=== PATIENT | female | born 1955 | race Asian ===

== ENCOUNTER 2017-03-21 18:19 | Emergency (ER) | payer OTHER ==
[~2017-03-21] VITALS: Wt 66.7 kg
[~2017-03-21 18:19] MED LIST: ASTHMA INHALER; ATOR10TA65 PO; AZIT250T94 PO; CLOT30CR24 TOP; HYDR-3010 PO
--- NOTE | 2017-03-21 22:27 | ERD ---
ER Documentation Chief Complaint Chief Complaint ABD PAIN, DIARRHEA, ONSET 2 WEEKS HPI The patient is a 61-year-old female, presenting to the ER because of intermittent epigastric abdominal pain, associated with diarrhea after she started intended for cough about 2 weeks ago. He denies fever, chills, neck pain, chest pain, dyspnea, vomiting, dysuria. She does not smoke nor drink. Medical history: Asthma, dyslipidemia Surgical history: Hysterectomy ROS All systems reviewed and are negative except as per history of present illness. Medications Home Meds Active Scripts Sulfamethoxazole/Trimethoprim* (Bactrim Ds* Tablet) 1 Each Tablet, 1 TAB PO BID , #14 TAB Prov:KAMILAH FUENTES MD 03/22/17 Pantoprazole* (Protonix*) 40 Mg Tablet.dr, 40 MG PO DAILY, #20 TAB Prov:KAMILAH FUENTES MD 03/22/17 Reported Medications Mag Hydrox/Al Hydrox/Simeth (Maalox Advanced Suspension) 355 Ml Oral.susp, 355 ML PO 03/22/17 Beclomethasone Dip* (Beconase AQ*) 25 Gm [place], 1 SPRAY NASAL BID, SPRAY TO EACH NOSTRIL 03/22/17 Albuterol Sulfate* (Ventolin HFA*) 18 Gm Hfa.aer.ad, 2 PUFF INHALATION Q4H, #1 INHALER 03/22/17 Discontinued Reported Medications [Asthma Inhaler] No Conflict Check, Y for ASTHMA ATTACK 01/18/15 Hydroxyzine Hcl* (Hydroxyzine Hcl*) 10 Mg Tablet, 10 MG PO Q6H Y for ALLERGY, TAB 01/18/15 Atorvastatin Calcium (Atorvastatin Calcium) 10 Mg Tab, 10 MG PO HS, TAB 01/18/15 Discontinued Scripts Clotrimazole* (Clotrimazole* AF) 1% - 30 Gm Cream.gm., 1 APPLIC TOP BID for 7 Days, TUB Prov:SKIPPAIGE KIRK C 07/04/15 Azithromycin* (Zithromax*) 250 Mg Tablet, 250 MG PO .ZPACK DIRECTED, #6 TAB TAKE 500 MG (2 TABS) THE FIRST DAY THEN 250 MG (1 TAB) DAYS 2-5 Prov:SKIPJOSUÉPAIGE C 07/04/15 Allergies Allergies: Coded Allergies: cat dander (Verified Adverse Reaction, Intermediate, 01/18/15) PMhx/Soc History of Surgery: Yes (HYSTERECTOMY) Anesthesia Reaction: No Hx Neurological Disorder: No Hx Respiratory Disorders: Yes (ALLERGIC ASTHMA) Hx Cardiac Disorders: No Hx Psychiatric Problems: No Hx Miscellaneous Medical Probl: No Hx Alcohol Use: No Hx Substance Use: No Hx Tobacco Use: No Physical Exam Vitals Vital Signs Date Time Temp Pulse Resp B/P Pulse Ox O2 Delivery O2 Flow Rate FiO2 03/21/17 18:22 88 18 137/77 98 Physical Exam Const: No acute distress. Head: Atraumatic. Eyes: Normal Conjunctiva. ENT: Normal External Ears, Nose and Mouth. Neck: Full range of motion. No meningismus. Resp: Clear to auscultation bilaterally. Cardio: Regular rate and rhythm. Abd: Soft, non distended, normal bowel sounds, minimal epigastric discomfort, no rigidity, rebound, CVA tenderness Skin: No petechiae or rashes. Back: No midline or flank tenderness. Ext: No cyanosis, or edema. Neur: Awake and alert. No focal deficit Psych: Normal Mood and Affect. Result Diagram: 03/21/17 2330 03/21/17 2330 Results 24 hrs Laboratory Tests Test 03/21/17 23:30 03/21/17 23:35 White Blood Count 9.410^3/ul Red Blood Count 4.7010^6/ul Hemoglobin 12.9g/dl Hematocrit 40.5% Mean Corpuscular Volume 86.2fl Mean Corpuscular Hemoglobin 27.4pg Mean Corpuscular Hemoglobin Concent 31.9g/dl Red Cell Distribution Width 13.5% Platelet Count 90595^3/UL Mean Platelet Volume 9.9fl Neutrophils % % Lymphocytes % % Monocytes % % Eosinophils % % Basophils % % Nucleated Red Blood Cells % 0.0/100WBC Neutrophils # 10^3/ul Lymphocytes # 10^3/ul Monocytes # 10^3/ul Eosinophils # 10^3/ul Basophils # 10^3/ul Nucleated Red Blood Cells # 10^3/ul Sodium Level 139mmol/L Potassium Level 3.9mmol/L Chloride Level 102mmol/L Carbon Dioxide Level 31mmol/L Anion Gap 10 Blood Urea Nitrogen 16mg/dl Creatinine 0.67mg/dl Glucose Level 93mg/dl Calcium Level 9.4mg/dl Total Bilirubin 1.0mg/dl Direct Bilirubin 0.00mg/dl Indirect Bilirubin 1.0mg/dl Aspartate Amino Transf (AST/SGOT) 19IU/L Alanine Aminotransferase (ALT/SGPT) 30IU/L Alkaline Phosphatase 104IU/L Total Protein 6.7g/dl Albumin 3.6g/dl Globulin 3.10g/dl Albumin/Globulin Ratio 1.16 Lipase 37U/L Bedside Urine pH (LAB) 6.5 Bedside Urine Protein (LAB) Negative Bedside Urine Glucose (UA) Negative Bedside Urine Ketones (LAB) Negative Bedside Urine Blood Trace-intact Bedside Urine Nitrite (LAB) Negative Bedside Urine Leukocyte Esterase (L 3+ Current Medications Medications (Trade) Dose Ordered Sig/Charlie Route PRN Reason Start Time Stop Time Status Last Admin Dose Admin Pantoprazole (Protonix Tab) 40 mg ONCE ONCE PO 03/21/17 23:00 03/21/17 23:01 DC 03/21/17 23:25 Procedures/[place] [id number] Radiology Main Line: [phone] DIAGNOSTIC IMAGING REPORT Patient: ALEXY ALSTON : 1955 Age: 61 Sex: F MR #: [id number] DOS: 03/21/17 2241 Ordering MD: KAMILAH FUENTES MD Location: E/R Room/Bed: PROCEDURE: Right upper quadrant abdominal ultrasound. CLINICAL INDICATION: Abdominal pain TECHNIQUE: Vasquez scale and color doppler ultrasound images of the right upper quadrant of the abdomen. COMPARISON: None FINDINGS: Pancreas: Visualized portions appear of normal echogenicity without focal lesions. Liver: Morphology:Normal in size. Contour:Normal, no evidence of nodularity. Echogenicity: Normal. Focal lesions:None. Main portal vein: Patent with hepatopetal flow. Biliary System: Gallbladder wall: Normal thickness. Gallstones: None. Intrahepatic bile ducts: Normal caliber. Common bile duct diameter (mm): 3.5 Kidneys: Right length (cm) : 9.1 Right cortical thickness: Normal. Echogenicity: Normal. Hydronephrosis: None. Renal calculi: None. Focal lesions: None. Free fluid/ascites: None. Abdominal aorta: Normal caliber of the visualized segments. Other findings: None. IMPRESSION: Normal gallbladder without gallstones. RPTAT: AADD .Neel Sosa MD, Date Time Electronically viewed and signed by .Neel Sosa MD, on 03/21/2017 23:05 .B/ CC: KAMILAH FUENTES MD EKG: Read by emergency physician Rate/Rhythm: Normal Sinus Rhythm 68 beats/min QRS, ST, T-waves: No ST elevation, no T inversion, septal Qs Impression: Abnormal EKG MEDICAL MAKING DECISION: The patient is a 61-year-old female, presenting with acute epigastric abdominal pain, most likely due to recent antibiotic, acute cystitis. She was treated with Protonix 40 mg p.o. with good response The differential diagnoses considered include but are not limited to cholelithiasis, cholecystitis, cystitis, pancreatitis, hepatitis, gastritis, peptic ulcer disease, gastric ulcer, appendicitis, diverticulitis, cholangitis, choledocholithiasis, partial small bowel obstruction. Departure Diagnosis: Primary Impression: UTI (urinary tract infection) Condition: Good Comments She was discharged with Protonix and Bactrim DS The patient's blood pressure was elevated (>120/80) but appears stable without evidence of hypertension emergency or urgency. The patient was counseled about the risks of hypertension and urged to pursue outpatient monitoring and therapy within a week with their primary care physician. I discussed the findings with the patient. I advised the patient to follow-up with the primary physician in about 1-2 days, sooner if needed and return if any concern. Disclaimer: Inadvertent spelling and grammatical errors are likely due to EHR/ dictation software use and do not reflect on the overall quality of patient care. Also, please note that the electronic time recorded on this note does not necessarily reflect the actual time of the patient encounter. KAMILAH FUENTES MD Mar 21, 2017 22:27
[2017-03-21] MEDS ORDERED: PANTOPRAZOLE (EC) 40 MG TAB PO ONE (23:00)
--- NOTE | 2017-03-21 23:06 | RADRPT ---
PROCEDURE: Right upper quadrant abdominal ultrasound. CLINICAL INDICATION: Abdominal pain TECHNIQUE: Vasquez scale and color doppler ultrasound images of the right upper quadrant of the abdom en. COMPARISON: None FINDINGS: Pancreas: Visualized portions appear of normal echogenicity without focal lesions. Liver: Morphology:Normal in size. Contour:Normal, no evidence of nodularity. Echogenicity: Normal. Focal lesions:None. Main portal vein: Patent with hepatopetal flow. Biliary System: Gallbladder wall: Normal thickness. Gallstones: None. Intrahepatic bile ducts: Normal caliber. Common bile duct diameter (mm): 3.5 Kidneys: Right length (cm) : 9.1 Right cortical thickness: Normal. Echogenicity: Normal. Hydronephrosis: None. Renal calculi: None. Focal lesions: None. Free fluid/ascites: None. Abdominal aorta: Normal caliber of the visualized segments. Other findings: None. IMPRESSION: Normal gallbladder without gallstones. RPTAT: AADD .Neel Sosa MD, MD Date Time Electronically viewed and signed by .Neel Sosa MD, on 03/21/2017 23:05 .B/
[2017-03-21 23:35] LABS: URINE BLOOD (Dip) POC Trace-intact (NEGATIVE)
[2017-03-22 00:01] LABS: ABNORMAL IP MESSAGE 1; HEMATOCRIT 40.5 % (37.0-47.0); HEMOGLOBIN 12.9 g/dl (12.0-16.0); MEAN CORPUSCULAR HEMOGLOBIN 27.4 pg (29.0-33.0); MEAN CORPUSCULAR HGB CONC 31.9 g/dl (32.0-37.0); MEAN CORPUSCULAR VOLUME 86.2 fl (82.0-101.0); MEAN PLATELET VOLUME 9.9 fl (7.4-10.4); PLATELET COUNT 257 10^3/UL (140-415); RED CELL DISTRIBUTION WIDTH 13.5 % (11.5-14.5); WHITE BLOOD COUNT 9.4 10^3/ul (4.8-10.8)
[2017-03-22 00:12] LABS: POSITIVE DIFF @See below
[2017-03-22 00:20] LABS: ALBUMIN 3.6 g/dl (3.3-4.9); ALBUMIN/GLOBULIN RATIO 1.16; CALCIUM 9.4 mg/dl (8.4-10.2); CREATININE 0.67 mg/dl (0.44-1.00); POTASSIUM 3.9 mmol/L (3.5-5.1); TOTAL PROTEIN 6.7 g/dl (6.1-8.1)
[2017-03-22] MEDS ORDERED: ALBU18HF INHALATION (00:31)
[2017-03-22] MEDS ORDERED: MAG355OR14 PO (00:31)
[2017-03-22] MEDS ORDERED: BECAQ NASAL (00:31)
[2017-03-22] MEDS ORDERED: PANT40TA3 PO (00:48)
[2017-03-22] MEDS ORDERED: SULF1TAB31 PO (00:48)
[2017-03-22 01:06] VITALS: BP 141/91; PULSE 76; RESP 16
[2017-03-22 01:36] LABS: EOSINOPHILS # 4.4 10^3/ul (0.0-0.5); EOSINOPHILS % (M) 47 % (0.0-7.0); LYMPHOCYTES # 1.7 10^3/ul (0.8-2.9); MONOCYTE # 0.6 10^3/ul (0.3-0.9); MONOCYTES % (M) 6 % (0-11); REACTIVE LYMPHOCYTES% (M) 2 % (0-0)
[2017-03-22 01:37] LABS: PLATELET ESTIMATE NORMAL
== END 2017-03-22 01:07 | disposition home or self-care (01) ==
LOC: E/R 18:19
DX: N39.0 Urinary tract infection, site not specified (principal); J45.909 Unspecified asthma, uncomplicated
CPT/HCPCS: 36415; 76705; 80053; 81003; 83690; 85025; Z7502; Z7610; 93005